=== PATIENT | male | born 1955 | race African-American/Black ===

== ENCOUNTER 2020-03-11 10:12 | Emergency (ER) | payer OTHER ==
--- NOTE | 2020-03-11 11:59 | ER Document Report ---
ED Respiratory Problem - General Chief Complaint: Cough Stated Complaint: COUGH,BODY ACHES Time Seen by Provider: 03/11/20 10:28 Primary Care Provider: RICARDO RETANA MD [Primary Care Provider] - Follow up as needed Notes: CHIEF COMPLAINT: Cough and body ache for 1 week, positive Covid test today HPI: 64-year-old male who reports no other major medical illnesses presenting for evaluation of cough and body ache for 1 week no chest pain no shortness of breath no abdominal pain nausea vomiting. Had a rapid Covid test today that was positive. ROS: See HPI - all other systems were reviewed and are otherwise negative Constitutional: no fever Eyes: no drainage, no blurred vision ENT: no runny nose, no sore throat Cardiovascular: no chest pain Resp: no SOB, + cough GI: no vomiting, no diarrhea, no abdominal pain : no dysuria Integumentary: no rash Allergy: no hives Musculoskeletal: no extremity pain or swelling, positive generalized myalgia Neurological: no numbness/tingling, no weakness MEDICATIONS: I agree with the patient medications as charted by the RN. ALLERGIES: I agree with the allergies as charted by the RN. PAST MEDICAL HISTORY/PAST SURGICAL HISTORY: Reviewed and agree as charted by RN. SOCIAL HISTORY: Reviewed and agree as charted by RN. FAMILY HISTORY: No significant familial comorbid conditions directly related to patient complaint EXAM: Reviewed vital signs as charted by RN. CONSTITUTIONAL: Alert and oriented and responds appropriately to questions. Well-appearing; well-nourished HEAD: Normocephalic; atraumatic EYES: PERRL; Conjunctivae clear, sclerae non-icteric ENT: normal nose; no rhinorrhea; moist mucous membranes; pharynx without lesions noted, no uvula edema or deviation, no tonsillar hypertrophy, phonation normal NECK: Supple without meningismus; non-tender; no cervical lymphadenopathy, no masses CARD: RRR; no murmurs, no clicks, no rubs, no gallops; symmetric distal pulses RESP: Normal chest excursion without splinting or tachypnea; breath sounds clear and equal bilaterally; no wheezes, no rhonchi, no rales, pulse oximetry 98% on room air not hypoxic ABD/GI: Normal bowel sounds; non-distended; soft, non-tender, no rebound, no guarding; no palpable organomegaly or masses. BACK: The back appears normal and is non-tender to palpation, there is no CVA tenderness EXT: Normal ROM in all joints; non-tender to palpation; no cyanosis, no effusions, no edema SKIN: Normal color for age and race; warm; dry; good turgor; no acute lesions noted NEURO: Moves all extremities equally; Motor and sensory function intact PSYCH: The patient's mood and manner are appropriate. Grooming and personal hygiene are appropriate. MDM: 64-year-old male presenting for 1 week of flulike illness positive Covid test today. Will obtain chest x-ray for infiltrate, influenza test ordered by triage process Past Medical History - Social History Smoking Status: Never Smoker Chew tobacco use (# tins/day): No Frequency of alcohol use: None Drug Abuse: None Family History: Reviewed & Not Pertinent Physical Exam - Vital signs Vitals: Temp Pulse Resp BP Pulse Ox 99.3 F 90 16 136/68 H 97 03/11/20 10:17 03/11/20 10:17 03/11/20 10:17 03/11/20 10:17 03/11/20 10:17 Course - Re-evaluation Re-evalutation: 03/11/20 12:32 I went in to question the patient further. He now admits to hypertension, type 2 diabetes, prostate cancer with seeding last year but no chemotherapy. Patient appears to have an infiltrate of the right lower lobe on my review of this is confirmed by the radiologist. If he did have a positive Covid test this is likely Covid pneumonia. I will obtain baseline lab work on the patient including CBC CMP and blood cultures. He is not hypoxic or tachypneic and I do not believe patient needs admission at this time. I will start him on Zithromax, Decadron, albuterol inhaler 03/11/20 12:33 We did discuss that the Decadron will elevate his blood sugars temporarily 03/11/20 13:47 Patient's labs do not show acute emergent abnormalities that will need action today. Will be discharged home on Zithromax, albuterol and Decadron to follow- up with PCP return if condition worsens - Vital Signs Vital signs: Temp Pulse Resp BP Pulse Ox 99.3 F 90 16 136/68 H 97 03/11/20 10:17 03/11/20 10:17 03/11/20 10:17 03/11/20 10:17 03/11/20 10:17 - Laboratory Result Diagrams: 03/11/20 12:54 03/11/20 12:54 Laboratory results interpreted by me: 03/11/20 03/11/20 12:54 12:54 RDW 14.5 H Potassium 5.2 H Carbon Dioxide 31 H Est GFR (MDRD) Non-Af 59 L Glucose 185 H Discharge - Discharge Clinical Impression: Pneumonia due to COVID-19 virus Condition: Stable Disposition: HOME, SELF-CARE Instructions: COVID-19 Guidance for Persons Under Investigation, Pneumonia ([facility]) Additional Instructions: It was noted on your chest x-ray today that you have finding suspicious for pneumonia. As you did have a positive Covid test today this would be considered Covid pneumonia. Take the medications as prescribed use the albuterol inhaler 2 puffs every 4 hours as needed for shortness of breath or cough. Motrin Tylenol for body ache. Hydrate well at home. Follow-up with your primary care provider, return for worsened shortness of breath or condition. You should self isolate at home for the next 10 days Prescriptions: Dexamethasone [Decadron 4 Mg Tablet] 4 mg PO DAILY #7 tablet Albuterol Sulfate [Proair HFA Inhalation Aerosol 8.5 gm MDI] 2 puff IH Q4H PRN #1 mdi PRN Reason: Azithromycin [Zithromax 250 mg Tablet] 250 mg PO ASDIR PRN #6 tablet PRN Reason: Referrals: RICARDO RETANA MD [Primary Care Provider] - Follow up as needed
--- NOTE | 2020-03-11 12:16 | RADIOLOGY REPORT (SQ) ---
EXAM DESCRIPTION: CHEST SINGLE VIEW IMAGES COMPLETED DATE/TIME: 03/11/2020 12:02 pm REASON FOR STUDY: Cough weak lightheaded Covid positive body aches COMPARISON: None. EXAM PARAMETERS: NUMBER OF VIEWS: One view. TECHNIQUE: Single frontal radiographic view of the chest acquired. RADIATION DOSE: NA LIMITATIONS: None. FINDINGS: LUNGS AND PLEURA: Minimal patchy infiltrate in the right lower lobe. Lung clemons are othe rwise clear. MEDIASTINUM AND HILAR STRUCTURES: No masses. Contour normal. HEART AND VASCULAR STRUCTURES: Heart normal in size. Normal vasculature. BONES: No acute findings. HARDWARE: None in the chest. OTHER: No other significant finding. IMPRESSION: Patchy infiltrate in the right base. No other significant findings. TECHNICAL DOCUMENTATION: JOB ID: [id number] 2010 [employer]- All Rights Reserved Reading location - IP/workstation name: [email or web address]
[2020-03-11] MEDS ORDERED: AZITHROMYCIN 250 MG TABLET PO ONE (12:34)
[2020-03-11] MEDS ORDERED: DEXAMETHASONE 4 MG TABLET PO ONE (12:34)
[2020-03-11 13:15] LABS: ABSOLUTE LYMPHOCYTES (AUTO) 1.5 10^3/uL (0.5-4.7); ABSOLUTE MONOCYTES (AUTO) 0.4 10^3/uL (0.1-1.4); ABSOLUTE NEUT (AUTO) 4.6 10^3/uL (1.7-8.2); BASOPHILS % (AUTO) 0.2 % (0-2); EOSINOPHILS % (AUTO) 0.1 % (0-6); HEMATOCRIT 41.6 % (37.9-51.0); HEMOGLOBIN 14.1 g/dL (13.5-17.0); LYMPHOCYTES % (AUTO) 22.7 % (13-45); MEAN CORPUSCULAR VOLUME 85 fl (80-97); MONOCYTES % (AUTO) 6.3 % (3-13); PLATELET COUNT 211 10^3/uL (150-450); RED BLOOD COUNT 4.88 10^6/uL (4.35-5.55); RED CELL DISTRIBUTION WIDTH 14.5 % (11.5-14.0); SEGMENTED NEUTROPHILS % (AUTO) 70.7 % (42-78); TOTAL CELLS COUNTED % (AUTO) 100 %; WHITE BLOOD COUNT 6.4 10^3/uL (4.0-10.5)
[2020-03-11 13:24] LABS: A TYPE INFLUENZA AG NEGATIVE (NEGATIVE); B INFLUENZA AG NEGATIVE (NEGATIVE)
[2020-03-11 13:42] LABS: ALBUMIN 3.5 g/dL (3.5-5.0); ALKALINE PHOSPHATASE 109 U/L (38-126); ANION GAP 6 (5-19); ASPARTATE AMINO TRANSFERASE 53 U/L (17-59); BILIRUBIN,DIRECT 0.1 mg/dL (0.0-0.4); BILIRUBIN,TOTAL 0.4 mg/dL (0.2-1.3); BLOOD UREA NITROGEN 16 mg/dL (7-20); CARBON DIOXIDE 31 mmol/L (22-30); CHLORIDE 103 mmol/L (98-107); GLUCOSE 185 mg/dL (75-110); POTASSIUM 5.2 mmol/L (3.6-5.0); TOTAL PROTEIN 6.7 g/dL (6.3-8.2)
[2020-03-11 14:38] VITALS: BP 106/60
== END 2020-03-11 14:38 | disposition home or self-care (01) ==
LOC: ER 10:12
DX: U07.1 COVID-19 (principal); J12.89 Other viral pneumonia; R05 Cough; M79.10 Myalgia, unspecified site; I10 Essential (primary) hypertension; E11.9 Type 2 diabetes mellitus without complications
CPT/HCPCS: 99284; 36415; 87040; 85025; 80053; 87804; 71045; J8540